=== PATIENT | male | born 1985 | race Caucasian/White ===

== ENCOUNTER → 2017-12-27 | Outpatient (REF) | payer OTHER ==
[2017-12-27 17:42] LABS: BASO # 0.1 10^3/uL (0.0-0.2); BASO % 1.2 % (0.0-1.0); EOS # 0.3 10^3/uL (0.0-0.50); HEMATOCRIT 42.2 % (42.0-52.0); HEMOGLOBIN 13.9 g/dl (14.0-18.0); IMMATURE GRANULOCYTE % 1.2 % (0-3.0); LYMPH # 1.6 10^3/uL (1.5-4.5); LYMPH % 27.7 % (24.0-44.0); MEAN CORPUSCULAR HGB CONC 32.9 g/dl (32.0-36.5); MEAN CORPUSCULAR VOLUME 88.1 fl (80.0-96.0); MONO # 0.5 10^3/uL (0.0-0.8); MONO % 8.7 % (0.0-5.0); NEUTROPHILS # 3.3 10^3/uL (1.8-7.7); NEUTROPHILS % 56.2 % (36.0-66.0); PLATELET COUNT, AUTOMATED 298 10^3/uL (150-450); RED BLOOD COUNT 4.79 10^6/uL (4.30-6.10); RED CELL DISTRIBUTION WIDTH 12.3 % (11.5-14.5); WHITE BLOOD COUNT 5.8 10^3/uL (4.0-10.0)
[2017-12-27 18:32] LABS: TOTAL 25(OH) VITAMIN D 24.6 NG/ML (30.0-100.0)
[2017-12-27 18:33] LABS: FOLATE 16.6 NG/ML; VITAMIN B12 LEVEL 569 PG/ML
[2017-12-27 18:49] LABS: ALBUMIN 3.8 GM/DL (3.2-5.2); ALBUMIN/GLOBULIN RATIO 1.15 (1.00-1.93); ALKALINE PHOSPHATASE 126 U/L (45-117); ALT/SGPT 136 U/L (12-78); ANION GAP 6 MEQ/L (8-16); AST/SGOT 36 U/L (7-37); BILIRUBIN,TOTAL 0.4 MG/DL (0.2-1.0); BLOOD UREA NITROGEN 16 MG/DL (7-18); CALCIUM LEVEL 9.4 MG/DL (8.5-10.1); CARBON DIOXIDE LEVEL 29 MEQ/L (21-32); CHLORIDE LEVEL 106 MEQ/L (98-107); CHOLESTEROL LEVEL 230 MG/DL (<200); CHOLESTEROL RISK RATIO 4.259 (<5); CREATININE FOR GFR 0.97 MG/DL (0.70-1.30); FREE T4 0.82 NG/DL (0.76-1.46); GAMMA GLUTAMYLTRANSPEPTIDASE 343 U/L (15-85); GLOMERULAR FILTRATION RATE > 60.0 (>60); GLUCOSE, FASTING 93 MG/DL (70-100); HDL CHOLESTEROL 54 MG/DL (>40); LDL CHOLESTEROL 98.8 MG/DL (<100); NON-HDL-C 176 MG/DL; SODIUM LEVEL 141 MEQ/L (136-145); TOTAL PROTEIN 7.1 GM/DL (6.4-8.2); TRIGLYCERIDES LEVEL 386 MG/DL (<150)
[2017-12-27 19:49] LABS: POS COUNT POS FLAG
== END ==
LOC: M SFHCCAPE 07:02
DX: Z13.6 Encounter for screening for cardiovascular disorders (principal); F32.1 Major depressive disorder, single episode, moderate; R74.8 Abnormal levels of other serum enzymes; Z87.898 Personal history of other specified conditions
CPT/HCPCS: 82746

== ENCOUNTER → 2017-12-29 | Outpatient (CLI) | payer OTHER | LOC: M OUTALCOH 09:39 | DX: Z13.9 Encounter for screening, unspecified (principal); F10.20 Alcohol dependence, uncomplicated ==

== ENCOUNTER 2018-01-05 16:23 | Outpatient (RCR) | payer OTHER | END 2018-01-27 | LOC: M OUTALCOH 16:23 | DX: F10.20 Alcohol dependence, uncomplicated (principal); F12.10 Cannabis abuse, uncomplicated; Z72.0 Tobacco use ==

== ENCOUNTER 2018-02-12 11:08 | Outpatient (RCR) | payer OTHER | END 2018-02-26 | LOC: M OUTALCOH 11:08 | DX: F10.20 Alcohol dependence, uncomplicated (principal); F12.10 Cannabis abuse, uncomplicated; Z72.0 Tobacco use ==

== ENCOUNTER 2018-02-27 10:11 | Outpatient (RCR) | payer OTHER | END 2018-03-29 | LOC: M OUTALCOH 10:11 | DX: F10.20 Alcohol dependence, uncomplicated (principal); F12.10 Cannabis abuse, uncomplicated; Z72.0 Tobacco use ==

== ENCOUNTER 2022-07-16 13:28 | Emergency (ER) | payer MEDICAID, OTHER, SELFPAY ==
[~2022-07-16] VITALS: Ht 175.3 cm; Wt 66.8 kg
[~2022-07-16 13:28] MED LIST: FOLI1TAB11 PO; OXAZ10CA3 PO; PROT20TA11 PO; VITMTA PO
[2022-07-16 14:45] LABS: RSV AMPLIFICATION NEGATIVE (NEGATIVE)
[2022-07-16] MEDS ORDERED: IBUP-1022 PO (15:59)
[2022-07-16] MEDS ORDERED: BENZ200C70 PO (15:59)
[2022-07-16] MEDS ORDERED: VENTAER INH (15:59)
[2022-07-16 16:21] VITALS: BP 119/76
== END 2022-07-16 16:22 | disposition home or self-care (01) ==
LOC: M ED 13:28
DX: J06.9 Acute upper respiratory infection, unspecified (principal); J20.9 Acute bronchitis, unspecified

== ENCOUNTER 2025-07-16 17:04 | Emergency (ER) | payer OTHER ==
[~2025-07-16] VITALS: Ht 175.3 cm; Wt 57.6 kg
[~2025-07-16 17:04] MED LIST changes: +BENZ200C70 PO; +IBUP600T42 PO; +VENTAER INH
[2025-07-16 17:06] VITALS: BP 147/86; TEMP 97.4; O2SAT 98
== END 2025-07-16 21:12 | disposition left against medical advice (07) ==
LOC: M ED 17:04
DX: Z53.21 Procedure and treatment not carried out due to patient leaving prior to being seen by health care provider (principal)

== ENCOUNTER 2025-07-18 15:17 | Emergency (ER) | payer OTHER, SELFPAY ==
[~2025-07-18] VITALS: Ht 175.3 cm; Wt 58.9 kg
[2025-07-18 17:18] LABS: PLATELET COUNT, AUTOMATED 370 10^3/uL (150-450)
[2025-07-18 17:27] LABS: BARBITURATES URINE NEGATIVE (NEGATIVE); BENZODIAZEPINES URINE NEGATIVE (NEGATIVE); COCAINE METABOLITE URINE NEGATIVE (NEGATIVE); ETHYL ALCOHOL (ETHANOL) < 0.003 % (0.000-0.010); METHADONE URINE NEGATIVE (NEGATIVE); OPIATES URINE NEGATIVE (NEGATIVE); PHENCYCLIDINE URINE NEGATIVE (NEGATIVE)
[2025-07-18 17:29] LABS: ALT/SGPT 55 U/L (7.0-40); AST/SGOT 52 U/L (<34); CALCIUM LEVEL 9.2 MG/DL (8.5-10.1); CARBON DIOXIDE LEVEL 31 MMOL/L (20-31); CHLORIDE LEVEL 104 MMOL/L (98-107); CREATININE FOR GFR 1.08 MG/DL (0.70-1.30); GLOMERULAR FILTRATION RATE 87.9 (>60); POTASSIUM SERUM 3.9 MMOL/L (3.5-5.1); SALICYLATE LEVEL < 3.0 MG/DL (<30); SODIUM LEVEL 142 MMOL/L (136-145)
[2025-07-18 17:35] LABS: AMPHETAMINES LEVEL URINE POSITIVE (NEGATIVE); CANNABINOIDS URINE POSITIVE (NEGATIVE)
[2025-07-18 17:59] VITALS: BP 162/92; TEMP 97.4; O2SAT 98
== END 2025-07-18 18:02 | disposition home or self-care (01) ==
LOC: M ED 15:17
DX: F19.10 Other psychoactive substance abuse, uncomplicated (principal); F60.0 Paranoid personality disorder; M54.30 Sciatica, unspecified side; M54.2 Cervicalgia; F12.10 Cannabis abuse, uncomplicated; Z91.030 Bee allergy status

== ENCOUNTER 2025-10-20 15:44 | Emergency (ER) | payer MEDICAID, OTHER ==
[~2025-10-20] VITALS: Ht 175.3 cm; Wt 81.4 kg
[2025-10-20] MEDS ORDERED: BUPR-670 (15:50)
[2025-10-20] MEDS ORDERED: BUPR-363 (15:50)
[2025-10-20] MEDS ORDERED: ATOM25CA7 (15:50)
[2025-10-20 18:41] LABS: SOFIA COVID ANTIGEN NEGATIVE (NEGATIVE)
[2025-10-20 18:48] VITALS: BP 119/59; TEMP 97.6; O2SAT 98
== END 2025-10-20 18:56 | disposition home or self-care (01) ==
LOC: M ED 15:44
DX: J06.9 Acute upper respiratory infection, unspecified (principal); F41.9 Anxiety disorder, unspecified; F32.A Depression, unspecified; F17.200 Nicotine dependence, unspecified, uncomplicated; Z79.899 Other long term (current) drug therapy; Z91.030 Bee allergy status